=== PATIENT | female | born 1975 | race Caucasian/White ===

== ENCOUNTER 2020-01-05 19:39 | Emergency (ER) | payer BC ==
--- NOTE | 2020-01-05 20:42 | ER Document Report ---
ED Seizure - General Chief Complaint: Probable Seizure Stated Complaint: REPORTED SEIZURE Time Seen by Provider: 01/05/20 20:09 Primary Care Provider: CATHLEEN HERNANDEZ MD [Primary Care Provider] - Follow up as needed Notes: Patient is a 44-year-old female that comes emergency department for chief complaint of seizure-like symptoms. She comes from home by EMS. is at bedside, he states that he witnessed her suddenly staring straight ahead without blinking, arms outstretched, she was not having convulsion or shaking movements, however she was not responding to them. He states that she slid to the floor, she states she does not remember the episode. She states she remembers waking up on the floor and asking what happened. states that for approximately 15 minutes she was not responding to him, then after approximately 15 minutes she began to slowly look around, squeezes hand, and become responsive. Now patient is back to baseline. Patient states she felt fine except for the past couple of days she has had intermittent headaches at the back of her head which are not typical for her, however she denies current headache, head injury, fever, vomiting, sick symptoms. She denies any new medications. Past medical history of hypertension, fibromyalgia, and she does take tramadol but this has been reportedly prescribed for 6 months. She denies alcohol. She denies personal or family history of seizures. - Related Data Allergies/Adverse Reactions: No Known Allergies Allergy (Unverified 01/05/20 20:10) Past Medical History - General Information source: Patient, Relative - - Social History Smoking Status: Never Smoker Chew tobacco use (# tins/day): No Frequency of alcohol use: None Drug Abuse: None Lives with: Family Family History: Reviewed & Not Pertinent Patient has homicidal ideation: No - Past Medical History Cardiac Medical History: Reports: Hx Hypertension Musculoskeletal Medical History: Reports Hx Fibromyalgia Psychiatric Medical History: Reports: Hx Anxiety, Hx Attention Deficit Hyperactivity Disorder - Immunizations Immunizations up to date: Yes Hx Diphtheria, Pertussis, Tetanus Vaccination: Yes Review of Systems - Review of Systems Constitutional: No symptoms reported EENT: No symptoms reported Cardiovascular: No symptoms reported Respiratory: No symptoms reported Gastrointestinal: No symptoms reported Genitourinary: No symptoms reported Female Genitourinary: No symptoms reported Musculoskeletal: No symptoms reported Skin: No symptoms reported Hematologic/Lymphatic: No symptoms reported Neurological/Psychological: See HPI Physical Exam - Vital signs Vitals: Temp 99.1 F 01/05/20 19:41 - Notes Notes: GENERAL: Alert, interacts well. No acute distress. HEAD: Normocephalic, atraumatic. EYES: Pupils equal, round, and reactive to light. Extraocular movements intact. ENT: Oral mucosa moist, tongue midline. Oropharynx unremarkable. Airway patent. NECK: Full range of motion. Supple. Trachea midline. No lymphadenopathy. LUNGS: Clear to auscultation bilaterally, no wheezes, rales, or rhonchi. No respiratory distress. Non-tender chest wall. HEART: Regular rate and rhythm. No murmur ABDOMEN: Soft, non-tender. Non-distended. EXTREMITIES: Moves all 4 extremities spontaneously. No edema, normal radial and dorsalis pedis pulses bilaterally. No cyanosis. BACK: no cervical, thoracic, lumbar midline tenderness. No saddle anesthesia, normal distal neurovascular exam. Moves all extremities in full range of motion. NEUROLOGICAL: Alert and oriented x3. Normal speech. Cranial nerves II through XII grossly intact. Strength 5/5 in all extremities. PSYCH: Slightly flat affect but otherwise appropriate and does engage. Does not appear to be responding to internal stimuli. Insight appears good. SKIN: Warm, dry, normal turgor. No rashes or lesions noted. Course - Re-evaluation Re-evalutation: Patient has a slightly flat affect but she is polite and interactive, she is back to her baseline per her . She did not have a postictal phase, she did not bite her tongue, she did have a headache after she started responding normally, she did not have seizure-like activity. Based on her description given by her I most strongly suspect a catatonic episode. CT of the head unremarkable, CBC, chemistry, urinalysis unremarkable, alcohol negative. I discussed at length with the patient and . They state they have been staying with friends, she has not been sleeping well, they have been under a lot of stress. Patient is treated with antidepressants although she has never had a catatonic episode before. We discussed options. I have a lower suspicion that this is seizure and patient will first follow-up with her primary care which she has good contact and follow-up with, she will discuss with them additional possibilities including potential refer to additional psychiatry versus neurology. At this time patient be discharged home with return precautions. Patient with no current complaints. Patient has been state appreciation and agreement. - Vital Signs Vital signs: Temp Pulse Resp BP Pulse Ox 99.1 F 12 114/71 100 01/05/20 19:41 01/05/20 23:01 01/05/20 23:01 01/05/20 23:01 - Laboratory Result Diagrams: 01/05/20 20:01 01/05/20 20:01 Laboratory results interpreted by me: 01/05/20 01/05/20 20:01 20:01 Hct 34.8 L Sodium 136.2 L Creatinine 2.31 H Est GFR ( Amer) 28 L Est GFR (MDRD) Non-Af 23 L - EKG Interpretation by Me Additional EKG results interpreted by me: EKG shows sinus rhythm at a rate of 69, QTc 472, normal axis, no T wave inversions or ST segment changes in consecutive leads Discharge - Discharge Clinical Impression: Catatonic reaction Condition: Stable Disposition: HOME, SELF-CARE Additional Instructions: Your CAT scan imaging and laboratory work-up here did not show any concerning findings. Based on your evaluation and your symptoms I most strongly suspect that you had a catatonic episode today. Please continue your current medications and follow-up closely with your provider to discuss additional treatment and management of this. Return if you worsen including severe headache, vomiting, fever, or something is not right. Referrals: CATHLEEN HERNANDEZ MD [Primary Care Provider] - Follow up as needed
[2020-01-05 20:44] LABS: ABSOLUTE BASOPHILS # (AUTO) 0.1 10^3/uL (0.0-0.2); ABSOLUTE EOSINOPHILS # (AUTO) 0.4 10^3/uL (0.0-0.6); ABSOLUTE LYMPHOCYTES (AUTO) 1.1 10^3/uL (0.5-4.7); ABSOLUTE MONOCYTES (AUTO) 0.5 10^3/uL (0.1-1.4); ABSOLUTE NEUT (AUTO) 5.2 10^3/uL (1.7-8.2); BASOPHILS % (AUTO) 1.1 % (0-2); HEMATOCRIT 34.8 % (36.0-47.0); HEMOGLOBIN 12.2 g/dL (12.0-15.5); LYMPHOCYTES % (AUTO) 15.7 % (13-45); MEAN CORPUSCULAR HEMOGLOBIN 29.5 pg (27.0-33.4); MEAN CORPUSCULAR HGB CONC 35.1 g/dL (32.0-36.0); MEAN CORPUSCULAR VOLUME 84 fl (80-97); MONOCYTES % (AUTO) 6.3 % (3-13); PLATELET COUNT 300 10^3/uL (150-450); RED BLOOD COUNT 4.13 10^6/uL (3.72-5.28); RED CELL DISTRIBUTION WIDTH 12.9 % (11.5-14.0); SEGMENTED NEUTROPHILS % (AUTO) 70.9 % (42-78); TOTAL CELLS COUNTED % (AUTO) 100 %; WHITE BLOOD COUNT 7.3 10^3/uL (4.0-10.5)
[2020-01-05 21:04] LABS: ALKALINE PHOSPHATASE 88 U/L (38-126); ANION GAP 13 (5-19); ASPARTATE AMINO TRANSFERASE 18 U/L (14-36); BILIRUBIN,DIRECT 0.1 mg/dL (0.0-0.4); BILIRUBIN,TOTAL 0.3 mg/dL (0.2-1.3); BLOOD UREA NITROGEN 20 mg/dL (7-20); CALCIUM 9.1 mg/dL (8.4-10.2); CARBON DIOXIDE 22 mmol/L (22-30); CHLORIDE 101 mmol/L (98-107); GLUCOSE 84 mg/dL (75-110); POTASSIUM 3.7 mmol/L (3.6-5.0); TOTAL PROTEIN 7.3 g/dL (6.3-8.2)
[2020-01-05 21:06] LABS: ALCOHOL < 10 mg/dL (NONE DETECTED)
--- NOTE | 2020-01-05 21:23 | RADIOLOGY REPORT (SQ) ---
EXAM DESCRIPTION: CT HEAD WITHOUT IV CONTRAST COMPLETED DATE/TME: 01/05/2020 20:45 CLINICAL HISTORY: 44 years, Female, first time seizure EXAM DESCRIPTION: CT HEAD WITHOUT CLINICAL HISTORY: first time seizure COMPARISON: None Available TECHNIQUE: Contiguous axial CT images of the head were obtained. Coronal and sagittal reconstructions were created from the axial data. This exam was performed according to our departmental dose-optimization program, which includes automated exposure control, adjustment of the mA and/or kV according to patient size and/or use of iterative reconstruction technique. FINDINGS: There is no evidence of acute mass, mass effect, midline shift or hemorrhage. The ventricles and extra-axial CSF spaces are unremarkable. The brain parenchyma appears normal for the patient's age. No acute abnormalities of the bones is seen. IMPRESSION: No acute intracranial abnormality.
--- NOTE | 2020-01-05 21:38 | RADIOLOGY REPORT (SQ) ---
EXAM DESCRIPTION: CHEST SINGLE VIEW CLINICAL HISTORY: 44 years Female, ? syncope COMPARISON: None. FINDINGS: Exam is overpenetrated. Lungs: Lungs are clear. No pneumonia or edema. No pneumothorax or pleural effusion. Mediastinum: Cardiac and mediastinal silhouette are normal. Bones: Osseous structures are normal. IMPRESSION: No acute process.
[2020-01-05 23:01] LABS: APPEARANCE,URINE CLEAR; BILIRUBIN,URINE NEGATIVE (NEGATIVE); COLOR,URINE STRAW; GLUCOSE, URINE NEGATIVE (NEGATIVE); KETONES,URINE NEGATIVE (NEGATIVE); LEUKOCYTE ESTERASE,URINE NEGATIVE (NEGATIVE); NITRITE,URINE NEGATIVE (NEGATIVE); PROTEIN,URINE NEGATIVE (NEGATIVE); URINE SPECIFIC GRAVITY 1.003; UROBILINOGEN,URINE NEGATIVE mg/dL (<2.0)
[2020-01-05 23:34] VITALS: BP 114/71
--- NOTE | 2020-01-07 00:37 | EKG REPORT ---
SEVERITY:- NORMAL ECG - SINUS RHYTHM : Confirmed by: Sumaya Cole 07-Jan-2020 00:36:06
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
== END 2020-01-05 23:39 | disposition home or self-care (01) ==
LOC: ER 19:39
DX: F06.1 Catatonic disorder due to known physiological condition (principal); I10 Essential (primary) hypertension; F41.9 Anxiety disorder, unspecified
CPT/HCPCS: 36415; 70450; 71045; 80053; 80307; 81001; 83735; 84703; 85025; 93005; 93010; 99285